=== PATIENT | female | born 1945 | race Caucasian/White ===

== ENCOUNTER → 2019-02-14 | Outpatient (CLI) | payer MEDICARE, OTHER ==
[~2019-02-14] MED LIST: HYDACE5 PO
== END | disposition home or self-care (01) ==
LOC: LAB SHORT 08:19 → PLD 08:19
DX: D03.60 Melanoma in situ of unspecified upper limb, including shoulder (principal)
CPT/HCPCS: 88305

== ENCOUNTER → 2019-03-06 | Outpatient (CLI) | payer MEDICARE, OTHER | END | disposition home or self-care (01) | LOC: PLD 14:40 → LAB SHORT 14:40 | DX: D36.11 Benign neoplasm of peripheral nerves and autonomic nervous system of face, head, and neck (principal) | CPT/HCPCS: 88305 ==

== ENCOUNTER → 2021-10-12 | Outpatient (CLI) | payer MEDICARE, OTHER ==
[2021-10-12 12:00] LABS: BASOPHILS ABSOLUTE AUTO 0.05 K/mm3 (0.00-0.23); BASOPHILS PERCENT AUTO 1 % (0-2); EOSINOPHILS ABSOLUTE AUTO 0.02 K/mm3 (0.00-0.68); EOSINOPHILS PERCENT AUTO 0 % (0-6); Hematocrit 35.7 % (33.0-51.0); Hemoglobin 11.8 g/dL (11.5-16.0); IMMATURE GRAN ABSOLUTE AUTO 0.03 K/mm3 (0.00-0.10); IMMATURE GRAN PERCENT AUTO 0 % (0-1); LYMPHOCYTES ABSOLUTE AUTO 1.13 K/mm3 (0.84-5.20); LYMPHOCYTES PERCENT AUTO 16 % (21-46); MONOCYTES ABSOLUTE AUTO 0.68 K/mm3 (0.16-1.47); MONOCYTES PERCENT AUTO 10 % (4-13); Mean Corpuscular HGB 33.1 pg (26.0-34.0); Mean Corpuscular HGB Conc 33.1 g/dL (31.5-36.5); Mean Corpuscular Volume 100 fL (80-100); Mean Platelet Volume 9.7 fL (9.1-12.4); NEUTROPHILS ABSOLUTE AUTO 5.24 K/mm3 (1.96-9.15); NEUTROPHILS PERCENT AUTO 73 % (41-73); Platelet Count 253 K/mm3 (150-400); RDW Coefficient Variation 11.6 % (11.7-14.2); RDW Standard Deviation 42.2 fL (35.1-46.3); Red Blood Cell Count 3.56 M/mm3 (3.80-5.20); White Blood Cell Count 7.15 K/mm3 (4.00-11.30)
[2021-10-12 12:16] LABS: Albumin, Blood 3.7 g/dL (3.4-5.0); Albumin/Globulin Ratio 0.9 (0.8-1.8); Bilirubin, Total 0.3 mg/dL (0.1-1.0); Bun/Creatinine Ratio 17.4 (12.0-20.0); Calcium, Blood 10.4 mg/dL (8.5-10.1); Creatinine, Blood 0.69 mg/dL (0.40-1.00); Globulin, Blood 3.9 g/dL (2.2-4.0); Potassium, Blood 3.7 mmol/L (3.5-5.5); Total Protein, Blood 7.6 g/dL (6.4-8.2)
== END | disposition home or self-care (01) ==
LOC: LAB SHORT 11:56 → LAB 11:56
PROVIDERS: Physician Assistant Medical
DX: K59.00 Constipation, unspecified (principal)
CPT/HCPCS: 80053; 85025

== ENCOUNTER 2021-11-28 00:45 | Emergency (ER) | payer MEDICARE, OTHER ==
[~2021-11-28] VITALS: Ht 160 cm; Wt 50.8 kg
[2021-11-28] MEDS ORDERED: TRAM50 PO (05:38)
[2021-11-28] MEDS ORDERED: CYCL10 PO (06:05)
== END 2021-11-28 06:22 | disposition home or self-care (01) ==
LOC: ER 00:45
DX: M54.50 Low back pain, unspecified (principal); Z88.5 Allergy status to narcotic agent
CPT/HCPCS: A9270

== ENCOUNTER 2023-03-24 08:23 | Emergency (ER) | payer MEDICARE, OTHER ==
[~2023-03-24] VITALS: Ht 157.5 cm; Wt 50.4 kg
[~2023-03-24 08:23] MED LIST changes: +CYCL10 PO; +TRAM50 PO
[2023-03-24] MEDS ORDERED: AMOX-CLAV 875-1 EAC5 (08:43)
[2023-03-24 09:16] LABS: BASOPHILS ABSOLUTE AUTO 0.06 K/mm3 (0.00-0.23); BASOPHILS PERCENT AUTO 1 % (0-2); EOSINOPHILS ABSOLUTE AUTO 0.08 K/mm3 (0.00-0.68); EOSINOPHILS PERCENT AUTO 1 % (0-6); Hematocrit 33.6 % (33.0-51.0); Hemoglobin 11.2 g/dL (11.5-16.0); IMMATURE GRAN ABSOLUTE AUTO 0.03 K/mm3 (0.00-0.10); IMMATURE GRAN PERCENT AUTO 0 % (0-1); LYMPHOCYTES ABSOLUTE AUTO 0.85 K/mm3 (0.84-5.20); LYMPHOCYTES PERCENT AUTO 10 % (21-46); MONOCYTES ABSOLUTE AUTO 0.98 K/mm3 (0.16-1.47); MONOCYTES PERCENT AUTO 11 % (4-13); Mean Corpuscular HGB Conc 33.3 g/dL (31.5-36.5); Mean Corpuscular Volume 99 fL (80-100); Mean Platelet Volume 9.6 fL (9.1-12.4); NEUTROPHILS ABSOLUTE AUTO 6.84 K/mm3 (1.96-9.15); NEUTROPHILS PERCENT AUTO 77 % (41-73); Platelet Count 332 K/mm3 (150-400); RDW Standard Deviation 43.9 fL (35.1-46.3); Red Blood Cell Count 3.39 M/mm3 (3.80-5.20); White Blood Cell Count 8.84 K/mm3 (4.00-11.30)
[2023-03-24 09:44] LABS: Albumin, Blood 3.1 g/dL (3.4-5.0); Albumin/Globulin Ratio 0.7 (0.8-1.8); Bilirubin, Total 0.2 mg/dL (0.1-1.0); Bun/Creatinine Ratio 28.8 (12.0-20.0); Calcium, Blood 9.6 mg/dL (8.5-10.1); Creatinine, Blood 0.62 mg/dL (0.40-1.00); Globulin, Blood 4.2 g/dL (2.2-4.0); Potassium, Blood 3.4 mmol/L (3.5-5.5); Total Protein, Blood 7.3 g/dL (6.4-8.2)
[2023-03-24 14:21] LABS: International Normalized Ratio 1.08; Prothrombin Time Results 11.3 Sec (9.7-11.5)
[2023-03-24 16:37] LABS: RBC Count, CSF 161 /mm3 (0-0); WBC Count, CSF 0 /mm3 (0-5)
[2023-03-24 16:38] LABS: Appearance, CSF Clear (Clear); Color, CSF No Color (No Color)
[2023-03-24 16:42] LABS: Appearance, CSF Clear (Clear); Color, CSF No Color (No Color)
[2023-03-24 16:43] LABS: RBC Count, CSF 12 /mm3 (0-0); WBC Count, CSF 1 /mm3 (0-5)
[2023-03-24 17:00] VITALS: BP 144/83
[2023-03-24 17:33] LABS: Cryptococcus Neoformans/Gattii Not Detected (NOT DETECT); Enterovirus Not Detected (NOT DETECT); Escherichia Coli K1 Not Detected (NOT DETECT); Haemophilus Influenza Not Detected (NOT DETECT); Herpes Simplex Virus 1 Not Detected (NOT DETECT); Herpes Simplex Virus 2 Not Detected (NOT DETECT); Human Herpesvirus 6 Not Detected (NOT DETECT); Human Parechovirus Not Detected (NOT DETECT); Listeria Monocytogenes Not Detected (NOT DETECT); Neisseria Meningitidis Not Detected (NOT DETECT); Streptococcus Agalactiae Not Detected (NOT DETECT); Streptococcus Pneumoniae Not Detected (NOT DETECT); Varicella Zoster Virus Not Detected (NOT DETECT)
== END 2023-03-24 17:10 | disposition home or self-care (01) ==
LOC: ER 08:23
PROVIDERS: Emergency Medicine
DX: R51.9 Headache, unspecified (principal); M54.2 Cervicalgia; Z88.5 Allergy status to narcotic agent; Z79.899 Other long term (current) drug therapy; Z79.891 Long term (current) use of opiate analgesic
CPT/HCPCS: 70450; 77003; 80053; 82945; 84157; 85025; 85610; 85730; 87483; 89051; 99284-25

== ENCOUNTER 2023-04-20 11:21 | Day surgery (SDC) | payer MEDICARE, OTHER ==
[~2023-04-20] VITALS: Ht 157.5 cm; Wt 48.3 kg
[~2023-04-20 11:21] MED LIST changes: +AMOX-CLAV 875-1 EAC5; +PRED20 PO
--- NOTE | 2023-04-20 14:54 | NUR ---
04/20/23 0319 Monika Pandey @ 0977 DR CARROLL AT BEDSIDE, VERFICIATION OF PATIENT AND CORRECT SITE DONE AT BEDSIDE. PER DR CARROLL VERSED 1MG IV X1 GIVEN. DR CARROLL USED DOPPLER TO AHMET R TEMPORAL ARTERY SITE, THEN HE INJECTED AREA WITH TOTAL OF 3ML LIDOCAINE 1% WITH EPI [id number]. PT TOLERATED PROCEDURE WELL. AFTER PROCEDURE, ANOTHER 1MG OF IV VERSED ADMINISTERED PER ORDER FROM DR. CARROLL. PT MONITORED WITH CONTINUOUS PULSE OX UNTIL TRANSFER TO OR.
[2023-04-20 15:26] VITALS: BP 121/76
--- NOTE | 2023-04-20 16:09 | NUR ---
04/20/23 1609 Zuri Watkins IV DC'D, CATH INTACT. PT TOLERATED WELL. COBAN/GAUZE IN PLACE
== END 2023-04-20 16:08 | disposition home or self-care (01) ==
LOC: ORSCSDS 11:21
PROVIDERS: Otolaryngology
PROC: 03BS0ZX Excision of Right Temporal Artery, Open Approach, Diagnostic (ICD-10-PCS; principal; 2023-04-20 14:00)
DX: M31.6 Other giant cell arteritis (principal); Z87.891 Personal history of nicotine dependence
CPT/HCPCS: 88305; 88313; J2250; J7120

== ENCOUNTER → 2024-06-27 | Outpatient (CLI) | payer MEDICARE, OTHER ==
[~2024-06-27] MED LIST changes: +TOCILIZUMAB
== END ==
LOC: LAB SHORT 09:50 → LAB 09:50
DX: L02.419 Cutaneous abscess of limb, unspecified (principal)
CPT/HCPCS: 87070; 87075; 87077; 87186; 87205

== ENCOUNTER → 2024-07-02 | Outpatient (CLI) | payer MEDICARE, OTHER | LOC: LAB SHORT 09:30 → LAB 09:30 | DX: L02.419 Cutaneous abscess of limb, unspecified (principal) | CPT/HCPCS: 89055 ==

== ENCOUNTER 2024-07-06 08:23 | Day surgery (SDC) | payer MEDICARE, OTHER ==
[~2024-07-06] VITALS: Ht 157.5 cm; Wt 49.9 kg
[~2024-07-06 08:23] MED LIST changes: -TOCILIZUMAB
[2024-07-06] MEDS ORDERED: Lactated Ringer's 1,000 ML IV ONE ×2 (08:52→09:36)
[2024-07-06] MEDS ORDERED: NS 50 ML IV ONE (09:24)
[2024-07-06] MEDS ORDERED: CeFAZolin Sodium 2,000 MG VIAL ONE (09:24)
[2024-07-06] MEDS ORDERED: TOCILIZUMAB (09:39)
[2024-07-06] MEDS ORDERED: TraMADol HCl 50 MG Tab ONE (10:48)
[2024-07-06] MEDS ORDERED: Ketorolac Tromethamine 30mg Vial ONE (10:48)
[2024-07-06] MEDS ORDERED: Lidocaine HCl/Pf 1% 5 ML VIAL ONE (10:53)
--- NOTE | 2024-07-06 11:02 | NUR ---
07/06/24 1102 Kristina Marlow 0945: DISCUSSED WITH DR MOLINA AND DR RIVERO THAT PATIENT WOULD ONLY LIKE LOCAL NUMBING, NO SEDATION. DRS WILL COME TALK WITH PATIENT. 1042: BOTH DOCTORS TRACY AND MAT IN TO DISCUSS WITH PATIENT. 1050: VERBAL ORDER DR RIVERO FOR 15 MG TORADOL IV ONCE NOW AND 50 MG TRAMADOL PO ONCE NOW. 1055: PATIENT REFUSED MEDICATIONS, DR MOLINA AND DR RIVERO AWARE.
[2024-07-06] MEDS ORDERED: Bupivacaine 0.5% HCl 5 MG/ML 30MLVIAL XX ONE (11:18)
[2024-07-06 12:01] VITALS: BP 125/64
--- NOTE | 2024-07-06 13:04 | NUR ---
07/06/24 1304 Jhon Wyatt PRESCRIPTION FOR BACTRIM DS PHONED IN TO [facility]. PT IS INFORMED.
== END 2024-07-06 13:00 | disposition home or self-care (01) ==
LOC: ORSCSDS 08:23
PROVIDERS: Orthopaedic Surgery
PROC: 00B Central Nervous System and Cranial Nerves, Excision (ICD-10-PCS; principal; 2024-07-06 10:45)
DX: M67.431 Ganglion, right wrist (principal); S61.451D Open bite of right hand, subsequent encounter; F17.210 Nicotine dependence, cigarettes, uncomplicated; Z79.899 Other long term (current) drug therapy
CPT/HCPCS: 87071; 87075; 87205; 88304; A9270; J0690; J1885; J2003; J7120